=== PATIENT | female | born 1945 | race African-American/Black ===

== ENCOUNTER 2018-10-09 09:34 | Outpatient (CLI) | payer MEDICARE, BC ==
[~2018-10-09] VITALS: Ht 165.1 cm; Wt 90.7 kg
[2018-10-09 14:42] VITALS: BP 128/85
[2018-10-09] MEDS ORDERED: CENTRUM COMPLE1 EAC1 PO (14:42)
[2018-10-09] MEDS ORDERED: PROPRANOLOL HCL20 MG ORAL (14:42)
[2018-10-09] MEDS ORDERED: VITAMIN D1000 UNI1 ORAL (14:42)
--- NOTE | 2018-10-09 16:00 | Consultation ---
DATE OF CONSULTATION: 10/09/2018 CHIEF COMPLAINT: Referral for screening colonoscopy, history of colonic polyp. HISTORY OF PRESENT ILLNESS: This is a very pleasant 73-year-old female with a past medical history of colonic polyps, patient of Dr. Clarke, also past medical history of Parkinson disease, was referred to us for screening colonoscopy. The patient had prior history of colonoscopy with polyps and family history of colon cancer. PAST MEDICAL HISTORY: 1. Anxiety. 2. Parkinson disease. 3. Chronic back pain. PAST SURGICAL HISTORY: Appendectomy. She had shoulder fracture repair and x1. MEDICATIONS: Please see medication reconciliation list. FAMILY HISTORY: Father had cancer. Sister had colon cancer. Brother had colon cancer. SOCIAL HISTORY: The patient denies any tobacco, alcohol, or drug abuse. ALLERGIES: Penicillin, codeine, Percocet, aspirin. REVIEW OF SYSTEMS: Positive for mild GERD, mild bloating. No constipation. PHYSICAL EXAMINATION: VITAL SIGNS: Temperature 97.6, pulse 70, respiratory rate 20, blood pressure 122/85. HEENT: Normocephalic and atraumatic. Sclerae anicteric. NECK: Supple. No evidence of obvious lymphadenopathy. CARDIOVASCULAR: Regular rate and rhythm. Plus S1 and S2. No obvious murmur. LUNGS: Clear to auscultation bilaterally. ABDOMEN: Positive bowel sounds. Soft and nontender. No rebound. No guarding. No peritoneal sign. EXTREMITIES: No cyanosis. No clubbing. No edema. ASSESSMENT AND PLAN: The patient is a 73-year-old female with extensive family history of colon cancer with history of colonic polyps needs repeat colonoscopy. Plan to give her prep. She understood the prep and got the prescription and she is scheduled for October 22, 2018. I want thank to Dr. Lynn for this kind referral. Manjit Tobar M.D. DR: Titi JOB#: [id number] CC: Karen Lynn M.D.; Fax#: [phone]
== END 2018-10-09 11:34 | disposition home or self-care (01) ==
LOC: PAN 09:34
DX: K63.5 Polyp of colon (principal); G20 Parkinson's disease; F41.9 Anxiety disorder, unspecified; Z90.89 Acquired absence of other organs; Z88.0 Allergy status to penicillin; Z88.6 Allergy status to analgesic agent; Z80.0 Family history of malignant neoplasm of digestive organs
CPT/HCPCS: 99202

== ENCOUNTER 2018-10-22 09:51 | Day surgery (SDC) | payer MEDICARE, BC ==
[2018-10-22] VITALS (8 sets, daily range): BP systolic 134–153; BP diastolic 70–90
[~2018-10-22] VITALS: Ht 166.4 cm; Wt 98.4 kg
[~2018-10-22 09:51] MED LIST: CENTRUM COMPLE1 EAC1 PO; PROPRANOLOL HCL20 MG ORAL; VITAMIN D1000 UNI1 ORAL
--- NOTE | 2018-10-22 11:46 | Pre-Procedure Note/Attestation ---
Pre-Procedure Note/Attestation Complete Prior to Procedure Planned Procedure: not applicable Procedure Narrative: colonoscopy Indications for Procedure Pre-Operative Diagnosis: screening Attestation I attest that I discussed the nature of the procedure; its benefits; risks and complications; and alternatives (and the risks and benefits of such alternatives ), prior to the procedure, with the patient (or the patient's legal ocean import representative). I attest that, if there was a reasonable possibility of needing a blood transfusion, the patient (or the patient's legal ocean import representative) was given the [facility] standardized written summary, pursuant to the [place] Blood Safety Act ([place] Health and Safety Code # 1645, as amended). I attest that I re-evaluated the patient just prior to the surgery and that there has been no change in the patient's H&P, except as documented below: Manjit Tobar MD Oct 22, 2018 11:46
--- NOTE | 2018-10-22 11:46 | Short Stay Surgery H&P ---
History of Present Illness History of Present Illness Chief Complaint see recent office note HPI Laquita Priest is a 73 year old female who was admitted on for Colon Polyps Patient History Allergies: Coded Allergies: ACETAMINOPHEN (Verified Allergy, Intermediate, "sick in stomach", 10/22/18) ASPIRIN (Verified Allergy, Intermediate, hives, 10/22/18) PENICILLINS (Verified Allergy, Intermediate, "swells up", 10/22/18) IODINE (Verified Adverse Reaction, Severe, "passed out", 10/22/18) CODEINE (Verified Adverse Reaction, Intermediate, "nightmares", 10/22/18) OXYCODONE (Verified Adverse Reaction, Intermediate, "stomach problem", ) PROPOXYPHENE (Verified Adverse Reaction, Intermediate, "upset stomach", ) Medication History Scheduled Cholecalciferol (Vitamin D3)* (Vitamin D*), Unknown Dose ORAL DAILY, (Reported) Multivitamin/Iron/Folic Acid (Centrum Complete Multivit Tab), 1 EACH PO DAILY, ( Reported) Propranolol Hcl* (Inderal*), 60 MG ORAL DAILY, (Reported) Physical Exam Vital Signs Last Vital Signs Date Time Temp Pulse Resp B/P (MAP) Pulse Ox O2 Delivery O2 Flow Rate FiO2 10/22/18 10:54 Room Air 10/22/18 10:51 97.1 89 18 153/90 96 Plan Attestation Are the patient's medical conditions optimized for surgery? Manjit Tobar MD Oct 22, 2018 11:46
--- NOTE | 2018-10-22 11:56 | Anethesia Preoperative Eval ---
Anesthesia Pre-op PMH/ROS General Date of Evaluation: Oct 22, 2018 Time of Evaluation: 12:00 Anesthesiologist: Sameer ASA Score: ASA 2 Mallampati Score Class I : Soft palate, uvula, fauces, pillars visible Class II: Soft palate, uvula, fauces visible Class III: Soft palate, base of uvula visible Class IV: Only hard plate visible Mallampati Classification: Class II Surgeon: Amadou Diagnosis: colon polyps Surgical Procedure: colonoscopy Anesthesia History: none Family History: no anesthesia problems Allergies: Coded Allergies: ACETAMINOPHEN (Verified Allergy, Intermediate, "sick in stomach", 10/22/18) ASPIRIN (Verified Allergy, Intermediate, hives, 10/22/18) PENICILLINS (Verified Allergy, Intermediate, "swells up", 10/22/18) IODINE (Verified Adverse Reaction, Severe, "passed out", 10/22/18) CODEINE (Verified Adverse Reaction, Intermediate, "nightmares", 10/22/18) OXYCODONE (Verified Adverse Reaction, Intermediate, "stomach problem", ) PROPOXYPHENE (Verified Adverse Reaction, Intermediate, "upset stomach", ) Medications: see eMAR Patient NPO?: Yes NPO Date: Oct 21, 2018 NPO Time: 16:00 Past Medical History Cardiovascular: Denies: HTN, CAD, [place], valve dz, arrhythmia, other Pulmonary: Denies: asthma, COPD, PEDRO, other Neurologic/Psychiatric: Reports: depression/anxiety, other - parkinson's dx Endocrine: Denies: DM, hypothyroidism, steroids, other HEENT: Reports: cataract (L) Hematology/Immune: Denies: anemia, DVT, bleeding disorder, other Musculoskeletal/Integumentary: Reports: other - back pain, fractures bilateral shoulders, unsteady gait PSxH Narrative: , appendectomy, colonoscopy Anesthesia Pre-op Phys. Exam Physician Exam Last Vital Signs Date Time Temp Pulse Resp B/P (MAP) Pulse Ox O2 Delivery O2 Flow Rate FiO2 10/22/18 10:54 Room Air 10/22/18 10:51 97.1 89 18 153/90 96 Constitutional: NAD Neurologic: CN 2-12 intact Cardiovascular: RRR Respiratory: CTA Gastrointestinal: S/NT/ND Airway Exam Mallampati Score: Class II MO: full ROM: full Teeth: intact Dentures: no upper, no lower Anesthesia Pre-op A/P Labs reviewed Studies Pre-op Studies: EKG - nsr 87bpm Risk Assessment & Plan Assessment: A&Ox3 Plan: MAC Status Change Before Surgery: No Pre-Antibiotics Given Within 1 Hr of Incision: No Ivelisse Estrella CRNA Oct 22, 2018 11:56
--- NOTE | 2018-10-22 11:57 | Immediate Post-Op Evaluation ---
Immediate Post-Op Evalulation Immediate Post-Op Evalulation Procedure: colonoscopy Date of Evaluation: Oct 22, 2018 Time of Evaluation: 12:36 IV Fluids: NSS 600 ml Blood Products: 0 Estimated Blood Loss: 0 Urinary Output: 0 Blood Pressure Systolic: 137 Blood Pressure Diastolic: 74 Pulse Rate: 79 Respiratory Rate: 18 O2 Sat by Pulse Oximetry: 99 Temperature (Fahrenheit): 97.7 Pain Score (1-10): 0 Nausea: No Vomiting: No Patient Status: awake, reacts, patent, none Hydration Status: adequate Given Within 1 Hr of Incision: Ivelisse Diaz CRNA Oct 22, 2018 11:57
--- NOTE | 2018-10-22 11:57 | 48 Hour Post Anesthesia Eval ---
Post Anesthesia Evaluation Procedure: colonoscopy Date of Evaluation: Oct 22, 2018 Time of Evaluation: 12:41 Blood Pressure Systolic: 138 0: 71 Pulse Rate: 78 Respiratory Rate: 20 Temperature (Fahrenheit): 97.7 O2 Sat by Pulse Oximetry: 98 Airway: patent Nausea: No Vomiting: No Pain Intensity: 0 Hydration Status: adequate Mental Status/LOC: patient returned to baseline Follow-up care needed: patient intructions given Ivelisse Estrella CRNA Oct 22, 2018 11:57
[2018-10-22] MEDS ORDERED: Propofol 200mg/20ml IV ONE (12:00)
[2018-10-22] MEDS ORDERED: Lidocaine 1% MPF 10mg/ml 5ml ONE (12:00)
[2018-10-22] MEDS ORDERED: fentaNYL 100 mcg/2 mL IV PRN (12:00)
[2018-10-22] MEDS ORDERED: Midazolam 2mg/2ml Inj ONE (12:00)
[2018-10-22] MEDS ORDERED: Hydromorphone 0.5mg/0.5ml inj IVP PRN (12:00)
--- NOTE | 2018-10-22 13:09 | Endoscopy Procedure Note ---
Endoscopy Procedure Note General Indication for Procedure: screening Procedures Performed: colonoscopy Operative Findings/Diagnosis: one polyp Specimen: yes Pt Tolerated Procedure Well: Yes Estimated Blood Loss: none Anesthesia Anesthesiologist: geremias Anesthesia: MAC Inserted Devices Implant(s) used?: No Quality Quality of Bowel Preparation: Good Did scope reach the cecum?: Yes GI Core Measures 50 yrs or older w/o bx or poly: No 10yrs. F/U recommended: Yes If not recommended, why?: Above average risk 18 years or older w/prev. colo: Yes <3yrs. since last colonoscopy: No Manjit Tobar MD Oct 22, 2018 13:09
--- NOTE | 2018-10-23 11:20 | Cardiology Report ---
APPROVED REPORT EKG Measurement Heart [id number] WA [id number] Normal sinus rhythm Possible Left atrial enlargement Borderline ECG
--- NOTE | 2018-10-23 16:55 | Procedure Note ---
DATE OF PROCEDURE: 10/22/2018 SURGEON: Manjit Tobar M.D. PROCEDURE: Colonoscopy with biopsy. ANESTHESIA: Per ABIGAIL Estrella. INSTRUMENT: Olympus adult flexible colonoscope. INDICATION: Screening colonoscopy. REASON FOR PROCEDURE: The procedure, risks, benefits, and possible consequences, including hemorrhage, aspiration, perforation and infection, and alternative treatments, were explained to the patient/legal guardian by Dr. Manjit Tobar and the patient/legal guardian understood and accepted these risks. PROCEDURE IN DETAIL: After informed consent was obtained and the patient was adequately sedated, first rectal exam was performed, which was normal. Then, the scope was advanced from the rectum into cecum documented by appendiceal orifice, ileocecal valve, and right upper quadrant palpation. Quality of prep was very good. The patient had one polyp in the transverse colon, which was removed with the cold biopsy forceps technique. The rest of the examination was within normal limits. Retroflexion of rectum showed evidence of internal hemorrhoids. SUMMARY OF FINDINGS: 1. One colonic polyp removed, see above for details. 2. Scattered diverticulosis in the left colon. 3. Internal hemorrhoids. RECOMMENDATIONS: 1. Follow up biopsy results and treat accordingly. 2. We will recommend repeat colonoscopy in 5 years. Manjit Tobar M.D. DR: LUIS JOB#: [id number] CC:
== END 2018-10-22 14:20 | disposition home or self-care (01) ==
LOC: GAS 09:51
DX: Z12.11 Encounter for screening for malignant neoplasm of colon (principal); K57.90 Diverticulosis of intestine, part unspecified, without perforation or abscess without bleeding; K64.8 Other hemorrhoids; D12.3 Benign neoplasm of transverse colon; K63.5 Polyp of colon; Z88.6 Allergy status to analgesic agent; Z88.0 Allergy status to penicillin; Z88.8 Allergy status to other drugs, medicaments and biological substances; Z79.899 Other long term (current) drug therapy; G20 Parkinson's disease; Z90.89 Acquired absence of other organs; F32.9 Major depressive disorder, single episode, unspecified; F41.9 Anxiety disorder, unspecified
CPT/HCPCS: 45380; 93005; J2250; J2704; 94003; 94150

== ENCOUNTER 2018-11-06 09:54 | Outpatient (CLI) | payer MEDICARE, BC ==
--- NOTE | 2018-11-06 10:12 | General Progress Note ---
Assessment/Plan Problem List: (1) Colon polyps ICD Codes: K63.5 - Polyp of colon SNOMED: 53603544 (2) Diverticulosis ICD Codes: K57.90 - Diverticulosis of intestine, part unspecified, without perforation or abscess without bleeding SNOMED: 419348027 (3) Hemorrhoids ICD Codes: K64.9 - Unspecified hemorrhoids SNOMED: 47326981 Assessment/Plan: repeat colon in 5 years Subjective ROS Limited/Unobtainable: Yes Allergies: Coded Allergies: ACETAMINOPHEN (Verified Allergy, Intermediate, "sick in stomach", 10/22/18) ASPIRIN (Verified Allergy, Intermediate, hives, 10/22/18) PENICILLINS (Verified Allergy, Intermediate, "swells up", 10/22/18) IODINE (Verified Adverse Reaction, Severe, "passed out", 10/22/18) CODEINE (Verified Adverse Reaction, Intermediate, "nightmares", 10/22/18) OXYCODONE (Verified Adverse Reaction, Intermediate, "stomach problem", ) PROPOXYPHENE (Verified Adverse Reaction, Intermediate, "upset stomach", ) Objective General Appearance: alert EENT: normal ENT inspection Neck: supple Cardiovascular: normal rate Respiratory/Chest: lungs clear Abdomen: normal bowel sounds, non tender, soft Extremities: non-tender Manjit Tobar MD Nov 06, 2018 10:12
== END 2018-11-06 11:54 | disposition home or self-care (01) ==
LOC: PAN 09:54
DX: K63.5 Polyp of colon (principal); K57.90 Diverticulosis of intestine, part unspecified, without perforation or abscess without bleeding; K64.9 Unspecified hemorrhoids; Z88.6 Allergy status to analgesic agent; Z88.0 Allergy status to penicillin; Z91.041 Radiographic dye allergy status